=== PATIENT | female | born 1990 | race Hispanic/Latino ===

== ENCOUNTER 2019-11-24 08:00 | Inpatient (IN) | payer MEDICAID ==
[~2019-11-24] VITALS: Ht 167.6 cm; Wt 118.4 kg
[~2019-11-24 08:00] MED LIST: IBUP-2077 PO; TYL3 GT
[2019-11-27] MEDS ORDERED: LACTATED RINGERS 1000ML 1,000 ML IV SCH (05:45)
[2019-11-27] MEDS ORDERED: CEFAZOLIN SODIUM 1 GM VIAL IVP PRN (05:45)
[2019-11-27] MEDS ORDERED: LACTATED RINGERS 1000ML 1,000 ML IV ONE (06:12)
[2019-11-27 06:28] LABS: MEAN CORPUSCULAR HEMOGLOBIN 29.1 pg (27.0-33.0); MEAN CORPUSCULAR HGB CONC 32.3 g/dL (32.0-36.0); MEAN CORPUSCULAR VOLUME 90.1 fL (79-99); RED BLOOD CELL COUNT(AUTO) 4.33 MIL/uL (4.00-5.50); RED CELL DISTRIBUTION WIDTH 14.5 % (11.0-15.5); WHITE BLOOD COUNT (AUTO) 9.3 K/uL (4.8-10.8)
[2019-11-27 06:57] LABS: BILIRUBIN,URINE NEGATIVE (NEGATIVE); COLOR,URINE YELLOW (YELLOW); GLUCOSE, URINE (UA) NEGATIVE (NEGATIVE); KETONES,URINE NEGATIVE (NEGATIVE); LEUKOCYTE ESTERASE ,URINE SMALL (NEGATIVE); NITRATE,URINE NEGATIVE (NEGATIVE); OCCULT BLOOD,URINE NEGATIVE (NEGATIVE); PROTEIN,URINE NEGATIVE (NEGATIVE); UROBILINOGEN,URINE 0.2 mg/dL (0.2-1.0)
[2019-11-27] MEDS ORDERED: OXYTOCIN 10 USP UNITS/ML ONE ×2 (06:59→08:43)
[2019-11-27] MEDS ORDERED: ONDANSETRON HCL 4 MG/2 ML VIAL ONE (06:59)
[2019-11-27] MEDS ORDERED: DURAMORPH PF1 MG/ML 10ML AMP IV ONE (06:59)
[2019-11-27] MEDS ORDERED: EPHEDRINE SULFATE 50 MG/ML AMPULE ONE (06:59)
[2019-11-27] MEDS ORDERED: DEXAMETHASONE SOD PHOSPHATE 10MG/ML 1ML VIAL ONE (06:59)
[2019-11-27 07:04] VITALS: BP 119/73
[2019-11-27 07:07] LABS: APPEARANCE,URINE SLIGHTLY CLOUDY (CLEAR)
[2019-11-27] MEDS ORDERED: CALDOLOR 800MG+NS 250ML 250 ML IV ONE (07:22)
[2019-11-27 07:23] LABS: BACTERIA,URINE Moderate /HPF (None Seen)
[2019-11-27] MEDS ORDERED: METHYLERGONOVINE MALEATE 0.2 MG/1 ML ML ONE ×2 (07:23→09:18)
[2019-11-27] MEDS ORDERED: CEFAZOLIN SODIUM 1 GM VIAL IVP ONE (07:52)
[2019-11-27] MEDS ORDERED: OXYTOCIN-LR 20 UNITS/1000 ML 1,000 ML IV PRN (09:30)
[2019-11-27] MEDS ORDERED: MEPERIDINE-PF 75 MG/ML SYG IM PRN (09:30)
[2019-11-27] MEDS ORDERED: PROMETHAZINE HCL 25 MG/ML 1ML AMPULE IM PRN (09:30)
[2019-11-27] MEDS ORDERED: SODIUM CHLORIDE 0.9% 10 ML VIAL IVP PRN (09:30)
[2019-11-27 10:38] VITALS: BP 115/59
[2019-11-27] MEDS ORDERED: NALOXONE HCL 0.4 MG/1 ML ML IVP PRN (11:30)
[2019-11-27] MEDS ORDERED: DiphenhydrAMINE HCL 50 MG/ML VIAL IVP PRN (11:30)
[2019-11-27] MEDS ORDERED: EPHEDRINE SULFATE 50 MG/ML AMPULE IVP PRN (11:30)
[2019-11-27] MEDS: ONDANSETRON HCL 4 MG/2 ML VIAL IVP PRN ×2 (13:43→17:37)
[2019-11-27 16:22] VITALS: BP 103/62
[2019-11-27] MEDS: CALDOLOR 800MG+NS 250ML 250 ML IV SCH (17:33)
[2019-11-27 19:19] VITALS: BP 108/59
[2019-11-27] MEDS: DEXTROSE 5 %-0.45 % NACL 1,000 ML IV PRN (23:11)
[2019-11-27 23:57] VITALS: BP 107/63
[2019-11-28] MEDS: CALDOLOR 800MG+NS 250ML 250 ML IV SCH (01:10)
[2019-11-28 03:49] VITALS: BP 100/51
[2019-11-28 06:19] LABS: HEMATOCRIT 32.9 % (36-48); MEAN CORPUSCULAR HEMOGLOBIN 28.7 pg (27.0-33.0); MEAN CORPUSCULAR HGB CONC 31.6 g/dL (32.0-36.0); MEAN CORPUSCULAR VOLUME 90.6 fL (79-99); RED BLOOD CELL COUNT(AUTO) 3.63 MIL/uL (4.00-5.50); RED CELL DISTRIBUTION WIDTH 14.4 % (11.0-15.5); WHITE BLOOD COUNT (AUTO) 10.7 K/uL (4.8-10.8)
--- NOTE | 2019-11-28 06:20 | NUR ---
BLANK CATHETER F/C REMOVED, INTACT, TOLERATED WELL Addendum: 11/28/19 at 0800 by ALFONZO DAN LVN Amended: Links added.
[2019-11-28 07:53] VITALS: BP 95/53
[2019-11-28] MEDS ORDERED: BISACODYL 10 MG SUPP.RECT RC PRN (08:00)
[2019-11-28] MEDS ORDERED: HYDROCODONE/ACETAMINOPHEN 5/325 MG TAB PO PRN (08:00)
[2019-11-28] MEDS ORDERED: ACETAMINOPHEN EXTRA STRENGTH 500 MG TABLET PO PRN (08:00)
[2019-11-28 08:13] LABS: HEPATITIS Bs ANTIGEN SCREEN P Negative (Negative)
[2019-11-28] MEDS: DEXTROSE 5 %-0.45 % NACL 1,000 ML IV PRN (08:15)
[2019-11-28] MEDS: DOCUSATE SODIUM 100 MG CAP PO SCH ×2 (09:14→21:03)
[2019-11-28] MEDS: SIMETHICONE 80 MG TAB.CHEW PO PRN ×2 (09:14→21:12)
[2019-11-28] MEDS: IBUPROFEN 800 MG TAB PO SCH ×2 (09:15→16:16)
[2019-11-28 11:39] VITALS: BP 107/62
--- NOTE | 2019-11-28 11:58 | NUR ---
SPOKE WITH DR. HSU. PATIENT MAY D/C HOME TODAY IF FEELING OKAY IN THE AFTERNOON.
[2019-11-28] MEDS: DIPH,PERTUSS(ACELL),TET VAC/PF 0.5 ML VIAL IM SCH (17:26)
[2019-11-28 17:55] VITALS: BP 108/60
[2019-11-28 21:00] VITALS: BP 102/59
[2019-11-28] MEDS: ACETAMINOPHEN-CODEINE 300/30MG TAB PO PRN (21:05)
[2019-11-28 23:50] VITALS: BP 99/60
[2019-11-29] MEDS: IBUPROFEN 800 MG TAB PO SCH ×2 (00:25→09:16)
[2019-11-29] MEDS: ACETAMINOPHEN-CODEINE 300/30MG TAB PO PRN (01:24)
[2019-11-29 03:25] VITALS: BP 90/56
[2019-11-29] MEDS: DIPH,PERTUSS(ACELL),TET VAC/PF 0.5 ML VIAL IM SCH (08:00)
[2019-11-29 08:55] VITALS: BP 98/62
[2019-11-29] MEDS: DOCUSATE SODIUM 100 MG CAP PO SCH (09:16)
--- NOTE | 2019-11-29 10:25 | NUR ---
DR. HSU TO BE CALLING RX TO PREFERRED PHARMACY, [facility] ON [address].
--- NOTE | 2019-11-29 11:35 | NUR ---
PATIENT LEFT UNIT VIA WHEELCHAIR WITH BELONGINGS IN HAND. PERSONAL VEHICLE USED FOR TRANSPORTATION ACCOMPANIED BY SIGNIFICANT OTHER. BABY SECURE IN CAR SEAT. NO COMPLAINTS OR CONCERNS ADDRESSED FROM PATIENT.
== END 2019-11-29 11:35 | disposition home or self-care (01) | DRG 539 ==
LOC: EDSTATUS 08:00 → LDH 11-27 05:34 → WSH 11-27 11:22
PROVIDERS: ADMIT Obstetrics & Gynecology; ATTEND Obstetrics & Gynecology
PROC: 0UB70ZZ Excision of Bilateral Fallopian Tubes, Open Approach (ICD-10-PCS; 2019-11-27)
PROC: 3E0234Z Introduction of Serum, Toxoid and Vaccine into Muscle, Percutaneous Approach (ICD-10-PCS; 2019-11-27)
PROC: 10D00Z1 Extraction of Products of Conception, Low, Open Approach (ICD-10-PCS; principal; 2019-11-27 07:00)
DX: O34.211 Maternal care for low transverse scar from previous cesarean delivery (principal); E66.01 Morbid (severe) obesity due to excess calories; Z37.0 Single live birth; Z3A.39 39 weeks gestation of pregnancy; O99.214 Obesity complicating childbirth; Z30.2 Encounter for sterilization; O69.81X0 Labor and delivery complicated by cord around neck, without compression, not applicable or unspecified; Z23 Encounter for immunization; Z20.828 Contact with and (suspected) exposure to other viral communicable diseases
CPT/HCPCS: 36415; 59510; 81001; 85027; 86592; 86701; 86850; 86900; 86901; 87088; 87340; 87390; 88302; 90715; A4344; G0378; J0690; J1100; J1741; J2210; J2274; J2405; J2590; J3490; J7120; U0003